=== PATIENT | male | born 1995 | race Caucasian/White ===

== ENCOUNTER 2025-10-06 07:49 | Emergency (ER) | payer MEDICAID, SELFPAY ==
[2025-10-06 08:00] VITALS: BP 146/91; PULSE 101; RESP 18; TEMP 36.7; O2SAT 97; BMI 25.8
--- NOTE | 2025-10-06 08:09 | PD.EDEYE ---
ED Eye Problem RME/HPI General Chief complaint: Eye Problems Stated complaint: Metal in left eye since yesterday Time Seen by Provider: 10/06/25 08:00 Arrival date/time: 10/06/25 07:49 Related Data Previous Rx's ?Medication ?Instructions ?Recorded amoxicillin 500 mg-potassium 1 tab PO BID #14 tabs 09/08/23 clavulanate 125 mg tablet (Augmentin) ibuprofen 600 mg tablet 600 mg PO TID PRN fever or pain 10/06/25 #30 tabs ubevzikr-ieruuguxy-ovirhjnf 3.5 1 drp ophthalmic (eye) Q6H 5 days 10/06/25 mg/mL-10,000 unit/mL-0.1% eye #5 mL drops (Maxitrol) Allergies Allergy/AdvReac Type Severity Reaction Status Date / Time NKA* Allergy Uncoded 10/06/25 07:54 Course Quality Measures none Orders Category Date Time Status TETRACAINE Op Lesa 0.5% [Pontocaine Op Lesa 0.5%] Med 10/06/25 08:10 Discontinued 1 drop RIGHT EYE X1 ONE Vital Signs Vital signs: Vital Signs Temperature 98.1 F 10/06/25 08:00 Pulse Rate 101 H 10/06/25 08:00 Respiratory Rate 18 10/06/25 08:00 Blood Pressure 146/91 H 10/06/25 08:00 Pulse Oximetry (%) 97 10/06/25 08:00 Oxygen Delivery Method Room Air 10/06/25 08:00 Eye MDM Narrative MDM Narrative:: This section includes all my notes and documentations, including HPI, PE, and ED course. Gilberto Weber MD HPI: 30-year-old male here with possible foreign body in the left eye. Occurred about 24 hours ago while working on his bike. Has irritation especially when closing the eye. No other complaints. ROS: All negative except as documented in HPI. Physical Exam: General: Alert and oriented. Appears uncomfortable. Left Eye: PERRL. EOMI. Exam performed under light and magnification, upper and lower eyelids everted for exam. At the center, small orange color punctate noted. Conjunctiva injected with exudate. ENT: No nasal congestion. Neck: Supple. Lungs: No respiratory distress. Skin: Warm and dry. Neuro: Alert and oriented X 3. Tetracaine drops used for local anesthesia. At the center, small orange color punctate noted. Used cotton tip soaked with normal saline for FB removal. Unsuccessful. Recommended more outpatient care. Based on my best medical judgment, made decision no further evaluation or treatment indicated at this time. Patient understands and agrees to the discharge instructions customized and printed, see below. Discharge Instructions from Dr. Weber printed for you: 1. After evaluation, there is a small orange particle embedded in your left eye. We couldn't remove it because it has been embedded too long. 2. Use the eyedrops in your left eye for the infection. 3. Ibuprofen 800 mg every 6-8 hours today and tomorrow to decrease inflammation then as needed. 4. Left eyepatch as needed. 5. See an eye doctor on 10/08/2025 for further care. You don't want to take chances with your eyes and vision. 6. Seek immediate medical care with worsening or with any concerns. Gilberto Weber MD Patient data External records reviewed:: [facility] previous records Clinical information provided by:: patient Social determinants that could affect healthcare access:: none Patient has the following chronic illnesses:: No chronic medical problems. How is presenting disease/condition affected by chronic disease/condition?: uneffected by Evaluation data The following diagnostics were reviewed and interpreted by me:: other (specify) (No diagnostics ordered.) Lab and/or radiology exams considered but not ordered:: None Interpretation Summary: No diagnostics ordered. Medications / Prescriptions Medications or Prescriptions considered but not ordered:: None Medication administrations:: Medication Administration History Discontinued Medications Tetracaine HCl (Tetracaine Pf Op Lesa 0.5% 4 Ml Drpette) 1 drop RIGHT EYE X1 ONE Stop: 10/06/25 08:11 Last Admin: 10/06/25 08:41 Dose: Not Given Documented By: LENNIE Non-Admin Reason: Discontinued Tetracaine eyedrops Consultations Consultation(s) initiated? (list below): No Diagnosis Eye Problem Differential Diagnosis: corneal abrasion, conjunctivitis and subconjunctival hemorrhage Most likely diagnosis given after review of the tests above:: Eye FB Conjunctivitis Admission Indicated Admission indicated?: not indicated Explain why admission is indicated or not indicated:: With no condition needing emergent intervention, there was no indication for admission. Admission Request Was there a request for admission?: No Disposition Plan Disposition Plan: Discharge Discharge Attestation Discharge Attestation: The patient and all family members were given an opportunity to ask questions and understood the discharge instructions. Discharge instructions specifically effects, indications for sooner follow up or return to the emergency department, and the expected course of current diagnosis. Patient condition: Stable Discharge Plan Plan Patient Disposition: HOME (Self Care) Prescriptions/Referrals Prescriptions/Med Rec: New neomycin-polymyxin B-dexameth [Maxitrol] 3.5mg/mL-10,000 unit/mL-0.1 % drops,suspension 1 drp ophthalmic (eye) Q6H 5 Days Qty: 5 0RF ibuprofen 600 mg tablet 600 mg PO TID PRN (Reason: fever or pain) Qty: 30 0RF No Action amoxicillin-pot clavulanate [Augmentin] 500-125 mg tablet 1 tab PO BID Qty: 14 0RF Problem List Clinical Impression: Foreign body of left eye, Conjunctivitis of left eye Patient/Caregiver Discharge Instructions Discharge Activity: activity as tolerated Education Materials: ED Conjunctivitis, Bacterial, ED Conjunctival Foreign Body ... Additional Instructions: Discharge Instructions from Dr. Weber printed for you: 1. After evaluation, there is a small orange particle embedded in your left eye. We couldn't remove it because it has been embedded too long. 2. Use the eyedrops in your left eye for the infection. 3. Ibuprofen 800 mg every 6-8 hours today and tomorrow to decrease inflammation then as needed. 4. Left eyepatch as needed. 5. See an eye doctor on 10/08/2025 for further care. You don't want to take chances with your eyes and vision. 6. Seek immediate medical care with worsening or with any concerns. Print Language: Honduran Stand Alone Forms: [facility] Award Info., Patient Portal Info Letter
== END 2025-10-06 08:42 | disposition home or self-care (01) ==
PROVIDERS: Emergency Provider Emergency Medicine
DX: T15.12XA Foreign body in conjunctival sac, left eye, initial encounter (principal); H10.9 Unspecified conjunctivitis; W44.8XXA Other foreign body entering into or through a natural orifice, initial encounter
CPT/HCPCS: 99281